=== PATIENT | female | born 1990 | race Caucasian/White ===

== ENCOUNTER 2017-11-04 20:37 | Emergency (ER) | payer OTHER ==
[~2017-11-04] VITALS: Ht 152.4 cm; Wt 76.6 kg
[2017-11-04 21:37] LABS: HEMATOCRIT 32.1 % (36.0-46.0); HEMOGLOBIN 10.7 G/DL (11.9-15.5); MCH 30.3 PG (29.0-34.0); MCHC 33.3 G/DL (30.0-36.0); MCV 90.9 FL (83-99); PLATELET COUNT 470 K/uL (156-360); RBC DIS.WIDTH-CV 12.2 % (11.8-14.6); RBC DIS.WIDTH-SD 40.4 % (39-53); RED BLOOD COUNT 3.53 M/uL (3.80-5.20); WHITE BLOOD COUNT 7.5 K/uL (4.1-10.2)
[2017-11-04 21:55] LABS: CHLORIDE 102 mEq/L (99-109); POTASSIUM 3.6 mEq/L (3.7-5.4); SODIUM 140 mEq/L (136-147)
[2017-11-04 21:57] LABS: GLUCOSE 104 mg/dL (70-99)
[2017-11-04 21:59] LABS: ALBUMIN 4.1 g/dL (3.2-4.8)
[2017-11-04 22:00] LABS: CREATININE 0.8 mg/dL (0.6-1.3); GFR ESTIMATE (CALCULATED) > 59 mL/min/; PTT 25.8 SEC (25-37)
[2017-11-04 22:01] LABS: UREA NITROGEN (BUN) 10 mg/dL (9-23)
[2017-11-04 22:02] LABS: TOTAL PROTEIN 7.8 g/dL (6.4-8.3)
[2017-11-04 22:03] LABS: TOTAL BILIRUBIN 0.3 mg/dL (0.0-1.0)
[2017-11-04 22:04] LABS: ALKALINE PHOSPHATASE 153 IU/L (3-129)
[2017-11-04 22:07] LABS: AST (GOT) 56 IU/L (2-34); DIRECT BILIRUBIN 0.2 mg/dL (0.0-0.3)
[2017-11-04 22:08] LABS: ALT (GPT) 30 IU/L (3-49)
[2017-11-04 22:54] LABS: TROP-I INTERPRETATION NEGATIVE; TROPONIN-I < 0.01 ng/mL (0.0-0.30)
[2017-11-05 00:11] VITALS: BP 138/106
== END 2017-11-05 00:21 | disposition home or self-care (01) ==
LOC: EME 20:37 → RME 20:37
PROVIDERS: Nurse Practitioner Family
DX: O99.63 Diseases of the digestive system complicating the puerperium (principal); K81.0 Acute cholecystitis; O90.89 Other complications of the puerperium, not elsewhere classified; R07.2 Precordial pain; R06.02 Shortness of breath; Z88.0 Allergy status to penicillin; Z88.2 Allergy status to sulfonamides
CPT/HCPCS: 71046; 71275; 80048; 80076; 84484; 85027; 85610; 85730; 93005; 99281; 99285